=== PATIENT | female | born 1990 | race Caucasian/White ===

== ENCOUNTER 2017-05-30 11:23 | Emergency (ER) | payer OTHER ==
[~2017-05-30] VITALS: Ht 172.7 cm; Wt 57.7 kg
[~2017-05-30 11:23] MED LIST: ONDA4TAB12 PO; PANT20T PO
[2017-05-30 11:31] VITALS: BP 138/84; PULSE 106; RESP 20; O2SAT 97
--- NOTE | 2017-05-30 11:41 | ED.REPORT ---
HPI-Psychiatric Illness Date of Service May 30, 2017 ED Provider: History of Present Illness: 27yo female with long hx. of anxiety, has been prescribed Buspar by her mental health [employer] at [facility]. She reports she is afraid to take it due to potential side effect of making her "see things or go crazy." Pt. denies any SI/HI. She has difficulty sleeping at times due to feeling anxious. She convincingly denies any substance abuse. She desires to be under medical observation while she sees how she reacts to Buspar. Nursing Notes Stated Complaint: ANXIETY/DEPRESSION Chief Complaint: Psychiatric Complaint Allergies: Coded Allergies: Sulfa (Sulfonamide Antibiotics) (Verified Allergy, Intermediate, Rash, Itching,, 05/30/17) egg (Verified Allergy, Intermediate, Nausea,Vomiting, 05/30/17) Scheduled Ondansetron ODT (Ondansetron ODT) 4 Mg Tab.rapdis 4 MG PO TID Pantoprazole DR (Protonix) 20 Mg Tablet 20 MG PO BID General Time Seen by MD: 11:39 Chief Complaint Anxious Hx Obtained From: Patient Arrived By: Walk-in Onset Occurred: More than a week ago... (>6 months) Symptom Duration: Waxes and wanes Progression Since Onset: Waxes and wanes Severity: Current: No pain currently Severity: Maximum: No pain Associated with: Reports: Loss of appetite, Denies: Agitation, Delusions, Fever, Illicit drug use, Paranoia, Psychosis, Violence Pertinent Negative: Pt denies other symptoms Recent Healthcare: Recent doctor visit Similar Sx Previous: Yes Risk-Psychiatric Illness Suicide Risk Stratification Suicide Risk Factors - Adult: No: Alcohol use, Family Hx of Suicide, Previous attempt, Prior psych admission, Substance abuse RF Statements: Risk factors reviewed Past Medical History Past Medical History Gastric ulcers Anxiety Past Surgical History Denies Smoking History Current Every Day Smoker Social History Alcohol Use: Denies alcohol use Drug Use: Denies drug use Ambulatory Status Independent Review of Systems Constitutional: Denies: Chills, Fever Respiratory: Denies: Shortness of breath, Wheezing Cardiovascular: Denies: Chest pain GI: Denies: Abdominal pain Psychiatric: Reports: Anxiety, Insomnia, Stress, Denies: Change mental status, Confusion, Delusional, Hallucinations, auditory , Hallucinations, visual, Homicidal ideation, Suicidal ideation Physical Exam Initial Vital Signs Vital Signs (First) Date Time Temp Pulse Resp B/P Pulse Ox O2 Delivery O2 Flow Rate FiO2 05/30/17 11:31 37.2 106 20 138/84 97 Room Air Initial VS: Reviewed General/Constitutional: Awake, Alert, No acute distress, Well hydrated, Not toxic appearing Psychiatric: Affect NL, Mood NL, Not suicidal, Not homicidal, No hallucinations , Cognitive function NL, Judgment/insight NL, Thought content NL Respiratory / Chest: Breath sounds NL, Breath sounds = bilat, No respiratory distress Cardiovascular: Heart rate NL, Regular rhythm, Heart sounds NL Abdomen: Soft, Non-tender Re-Eval/Medical Decision Med Decision/Clinical Course Pt. is not suicidal, homocidal, or intoxicated in any way. She has outpatient follow up planned next week with [facility]. She is insightful and appropriate. She was observed in ED fo4r 1 hour post 5mg Buspar ingestion (opreviously prescribed), with no untoward side effect. I will also prescribe prn Hydroxyzine for her to take should she feel increased anxiety or have insomnia. S/s for which to return to ED discussed. Pt. acknowledged understanding of treatment plan. Counseled Regarding: Diagnosis, Need for follow-up, When/why to return to ED Discharge & Departure Impression: Primary Impression: Anxiety )( Condition at Discharge: No danger to self, No danger to others, No suicidal ideation Disposition: Home Additional Instructions: Take Buspar as prescribed, Hydroxyzine as needed. Follow up with [facility]. Return to ER if anything worsens. Referrals: OTHER,PHYSICIAN (PCP) Other as scheduled at [facility] (Family) EDSupervising Provider for APC: Ellis Galeano Christopher R PAC May 30, 2017 11:41
[2017-05-30] MEDS ORDERED: HYDR-656 PO (13:21)
[2017-05-30 13:40] VITALS: BP 128/80; PULSE 91; RESP 18; O2SAT 98
[2017-05-30] MEDS ORDERED: BUSP5TAB3 PO (13:42)
== END 2017-05-30 13:42 | disposition home or self-care (01) ==
LOC: SED 11:23
DX: F41.9 Anxiety disorder, unspecified (principal); F17.200 Nicotine dependence, unspecified, uncomplicated; Z88.2 Allergy status to sulfonamides; Z91.012 Allergy to eggs